=== PATIENT | male | born 1965 | race African-American/Black ===

== ENCOUNTER 2018-08-08 10:31 | Day surgery (SDC) | payer OTHER ==
[2018-08-01 09:53] LABS: APPEARANCE,URINE CLEAR; BILIRUBIN,URINE NEGATIVE (NEGATIVE); COLOR,URINE YELLOW; GLUCOSE, URINE NEGATIVE (NEGATIVE); KETONES,URINE NEGATIVE (NEGATIVE); LEUKOCYTE ESTERASE,URINE NEGATIVE (NEGATIVE); NITRITE,URINE NEGATIVE (NEGATIVE); PROTEIN,URINE NEGATIVE (NEGATIVE); URINE SPECIFIC GRAVITY 1.018; UROBILINOGEN,URINE NEGATIVE mg/dL (<2.0)
[2018-08-01 09:55] LABS: ABSOLUTE EOSINOPHILS # (AUTO) 0.1 10^3/uL (0.0-0.6); ABSOLUTE LYMPHOCYTES (AUTO) 1.7 10^3/uL (0.5-4.7); ABSOLUTE MONOCYTES (AUTO) 0.4 10^3/uL (0.1-1.4); ABSOLUTE NEUT (AUTO) 2.9 10^3/uL (1.7-8.2); BASOPHILS % (AUTO) 0.6 % (0-2); EOSINOPHILS % (AUTO) 2.3 % (0-6); HEMATOCRIT 39.3 % (37.9-51.0); HEMOGLOBIN 13.2 g/dL (13.5-17.0); LYMPHOCYTES % (AUTO) 32.8 % (13-45); MEAN CORPUSCULAR HEMOGLOBIN 32.2 pg (27.0-33.4); MEAN CORPUSCULAR HGB CONC 33.6 g/dL (32.0-36.0); MEAN CORPUSCULAR VOLUME 96 fl (80-97); MONOCYTES % (AUTO) 8.3 % (3-13); PLATELET COUNT 150 10^3/uL (150-450); RED BLOOD COUNT 4.09 10^6/uL (4.35-5.55); RED CELL DISTRIBUTION WIDTH 12.9 % (11.5-14.0); TOTAL CELLS COUNTED % (AUTO) 100 %; WHITE BLOOD COUNT 5.3 10^3/uL (4.0-10.5)
[2018-08-01 10:29] LABS: ANION GAP 9 (5-19); BLOOD UREA NITROGEN 15 mg/dL (7-20); CALCIUM 9.3 mg/dL (8.4-10.2); CARBON DIOXIDE 33 mmol/L (22-30); CHLORIDE 101 mmol/L (98-107); GLUCOSE 83 mg/dL (75-110); POTASSIUM 4.1 mmol/L (3.6-5.0); SODIUM 142.6 mmol/L (137-145)
--- NOTE | 2018-08-01 22:33 | EKG REPORT ---
SEVERITY:- NORMAL ECG - SINUS RHYTHM : Confirmed by: Ladi Ravi MD 01-Aug-2018 22:33:10
[~2018-08-08 10:31] MED LIST: BUPIVACAINE HCL 0.5 % INJ/PF 30 ML SDV ONE; CEFAZOLIN 2 GM/D5W RTU 2 GM/50 ML RTUPB IV ONE; CEFAZOLIN 2 GM/D5W RTU 2 GM/50 ML RTUPB IV PRN; DEXAMETHASONE SOD PHOSPHATE INJ 4 MG/1 ML VIAL ONE; EPINEPHRINE INJ/PF 1 MG/1 ML AMPULE ONE; FENTANYL CITRATE INJ/PF 100 MCG/2 ML AMPUL ONE; HYDROMORPHONE HCL INJ/PF 2 MG/ML AMPULE ONE; LACTATED RINGERS 1000 ML IV PRN; LIDOCAINE 0.5% INJ-PF (5 MG/ML) 50 ML SDV SUBCUT PRN; MIDAZOLAM 2 MG/2 ML INJ ONE; ONDANSETRON HCL INJ/PF 4 MG/2 ML SDV ONE; PROPOFOL INJ 200 MG/20 ML VIAL IV ONE
[2018-08-08] MEDS ORDERED: ACETAMINOPHEN 325 MG TABLET ONE (10:34)
[2018-08-08] MEDS ORDERED: FAMOTIDINE INJ/PF 20 MG/2 ML SDV IV ONE (10:34)
[2018-08-08] MEDS ORDERED: RINGERS SOLUTION,LACTATED 1,000 ML IV ONE (10:45)
[2018-08-08] MEDS ORDERED: EPHEDRINE SULFATE INJ 50 MG/1 ML AMPULE ONE (13:36)
[2018-08-08] MEDS ORDERED: DIPHENHYDRAMINE HCL 50 MG/ML VIAL IV PRN (14:39)
[2018-08-08] MEDS ORDERED: FENTANYL CITRATE INJ/PF 100 MCG/2 ML AMPUL IV PRN ×3 (14:39)
[2018-08-08] MEDS ORDERED: MORPHINE SULFATE 10 MG/ML INJ IV PRN (14:39)
[2018-08-08] MEDS ORDERED: PROMETHAZINE HCL INJ 25 MG/1 ML VIAL IV PRN ×2 (14:39)
[2018-08-08] MEDS ORDERED: ONDANSETRON HCL INJ/PF 4 MG/2 ML SDV IV PRN ×2 (14:39→16:01)
[2018-08-08] MEDS ORDERED: MEPERIDINE HCL/PF INJ 25 MG/1 ML DISP.SYRIN IV PRN (14:39)
[2018-08-08] MEDS ORDERED: LIDOCAINE 2% INJ (20 MG/ML) 20 ML MDV ONE (15:49)
[2018-08-08] MEDS ORDERED: LIDOCAINE 2%/EPINEPHRINE INJ 20 ML VIAL ONE (15:49)
[2018-08-08] MEDS ORDERED: ROPIVACAINE HCL 0.5% INJ/PF (5 MG/1 ML) 30 ML SDV ONE (15:49)
[2018-08-08] MEDS ORDERED: OXYCODONE-ACETAMINOPHEN 5-325 MG TABLET PO PRN (16:01)
[2018-08-08] MEDS ORDERED: HYDROMORPHONE HCL INJ/PF 2 MG/ML AMPULE IV PRN (16:01)
--- NOTE | 2018-08-08 16:01 | Operative Report ---
Operative Report DATE OF SURGERY: 08/08/18 PREOPERATIVE DIAGNOSIS: Right shoulder rotator cuff tear POSTOPERATIVE DIAGNOSIS: Right shoulder rotator cuff tear with degenerative SLAP tear impingement syndrome OPERATION: Right shoulder arthroscopy with acromioplasty, rotator cuff repair, open subpectoralis biceps tenodesis SURGEON: CHELSI FONSECA ANESTHESIA: GA COMPLICATIONS: None ESTIMATED BLOOD LOSS: Minimal PROCEDURE: Indication for above procedure: 53-year-old male with long-standing history of right shoulder discomfort. Attempted conservative measures including injections, anti-inflammatories and home exercise program without long-term resolution of patient's symptoms. Decision was then made to proceed with operative intervention which includes shoulder arthroscopy with rotator cuff repair. Postoperative outcomes, expectations, rehabilitation and prognosis have been explained patient verbalized understanding consented for surgical procedure. Procedure In Detail: Patient was seen and evaluated in the preoperative holding area. The RIGHT upper extremity was initialized and marked. Patient received 2g of Ancef IV for bacterial prophylaxis. Patient was taken back to the operative room where transferred to the operative table and placed under general anesthesia. Once they were adequately anesthetized a patient was placed in the beachchair position cervical spine placed in a neutral position, nonoperative left upper extremity bilateral lower extremity carefully padded and all bony prominences padded.. A surgical team debriefing was performed ensuring all instrumentation was available, the surgical procedure was discussed with possible concerns reviewed. The upper extremity was prepped with chlorhexidine and alcohol and draped in a sterile fashion. A timeout was done identifying correct patient, procedure and extremity everyone in attendance agree with this and verbalized no concerns. Posterior lateral portal was established arthroscope was introduced into the glenohumeral joint via triangulation anterior portal established. Diagnostic arthroscopy demonstrated high-grade partial-thickness rotator cuff tear with disruption of the anterior and posterior cables with greater than 70% involvement. There is degeneration of the superior labrum with peelback upon flexion, abduction and external rotation. Subscapularis remained intact. Minimal degenerative changes throughout the glenohumeral joint. Undersurface of the rotator cuff was debrided at the footprint. Biceps tendon was then released and labrum debrided. Arthroscope introduced into the subacromial space lateral portal established. Subacromial bursectomy was performed. Coracoacromial ligament was released but not excised. Anterior acromial spur was identified and acromioplasty performed. Diagnostic arthroscopy of the subacromial space demonstrated high-grade partial-thickness tear with thinning along the lateral attachment given the high-grade nature of the tear it was completed with a trocar. Any degenerative rotator cuff was further debrided. The greater tuberosity was debrided to cancellus bone with a bur. Passport cannula was placed in the lateral portal via triangulation additional portal was made in the anterior medial row swivel lock anchor placed. Additional portal established and posterior medial row anchor placed. Via speed bridge technique the link sutures were placed anteriorly and posteriorly respectively. Each suture was then cut providing 4 limbs of suture. Anterior and posterior suture was shuttled out the lateral portal and placed into a swivel lock anchor in the posterior lateral row anchor was secured. The remaining 2 stitches were then placed through an additional swivel lock anchor in the anterior lateral portal established. There was adequate compression at the footprint no evidence of tissue thinning or residual defect within the rotator cuff. The rotator cuff was mobile as a unit throughout range of motion. At completion of the case portals were closed with subcuticular 4-0 Monocryl reinforced with Dermabond and Steri-Strips. Longitudinal skin incision was made along the inferior third of the pectoralis major. Blunt dissection was performed identifying the inferior border of the pectoralis major. Any peripheral vasculature was carefully coagulated. I then identified the tenotomized long head of the biceps which was retrieved and brought out the wound. The tendon was then secured 2 centimeters distal to the musculotendinous junction with a #2 fiber loop and the remaining diseased portion of the biceps was excised. The Arthrex biceps tenodesis button was then secured to my biceps tendon. Under direct visualization I then cleared an area along the anterior aspect of the humerus and drilled unicortically. The button was then placed into the unicortical hole and the biceps tendon was shuttled to the anterior cortex of the humerus. I then checked stability of the button confirming maximal fixation. Utilizing the free needle one limb of the remaining FiberWire was secured to the biceps providing further fixation. The elbow was then placed through range of motion to ensure appropriate tension of the biceps with flexion and extension. The wound was then copiously irrigated with normal saline. Any peripheral vasculature was carefully coagulated with Bovie cautery. Skin was closed a running subcuticular 3-0 Monocryl suture reinforced with Dermabond and Steri-Strips. Sponge counts, instrument counts, needle counts were correct. Patient was then awoken from anesthesia. Transferred from the operating room table to the operating room stretcher. There was no intraoperative complications patient tolerated procedure well stable to PACU. Postoperative plan: Patient follow-up the office in 2 weeks for wound check and review arthroscopic pictures.
--- NOTE | 2018-08-08 16:04 | Discharge Summary ---
Discharge Summary (SDC) - Discharge Final Diagnosis: Right shoulder rotator cuff tear Date of Surgery: 08/08/18 Discharge Date: 08/08/18 Condition: Good Treatment or Instructions: Schedule Follow Up w/ Dr. Carl Mcguire @ [facility] to be seen in 10-14 days or as scheduled [place]: [place]: [place]: May remove dressing on postop day #3, keep incision covered and dry. Cryocuff to shoulder May begin pendulum exercises along w/ hand, wrist and elbow range of motion 4x per day or as tolerated. May remove sling for hygiene purposes otherwise continue it at all times. Stool softener of choice when on pain medication. Prescriptions: Oxycodone HCl/Acetaminophen [Percocet 5-325 mg Tablet] 1 tab PO Q6 PRN #25 tab PRN Reason: Referrals: VILLA RENTERIA PA [Primary Care Provider] - Discharge Diet: As Tolerated Respiratory Treatments at Home: Deep Breathing/Coughing Discharge Activity: No Lifting Over 10 Pounds, No Lifting/Push/Pulling Report the Following to Your Physician Immediately: Fever over 101 Degrees, Unusual Bleeding, Redness, Swelling, Warmth, Increased Soreness
[2018-08-08] MEDS ORDERED: OXYCODONE-ACETAMINOPHEN 5-325 MG TABLET ONE (17:09)
[2018-08-08 19:01] VITALS: BP 117/72
[2018-08-08] MEDS ORDERED: SUCCINYLCHOLINE CHLORIDE INJ 200 MG/10 ML VIAL ONE (19:17)
== END 2018-08-08 18:25 | disposition home or self-care (01) ==
LOC: OROUT 10:31
PROVIDERS: ATTEND Orthopaedic Surgery
DX: S43.431A Superior glenoid labrum lesion of right shoulder, initial encounter (principal); X58.XXXA Exposure to other specified factors, initial encounter; M75.121 Complete rotator cuff tear or rupture of right shoulder, not specified as traumatic; K21.9 Gastro-esophageal reflux disease without esophagitis; Z79.899 Other long term (current) drug therapy; Z88.2 Allergy status to sulfonamides
CPT/HCPCS: 93005; 36415; 85025; 80048; 81001; 93010; 29827; 29828; 29826; 24340; C1713 ×3; J2795; J2250; J3490 ×4; J1100; J0171; J3010; J1170; J0330; J2405; J2704; S0028; J0690; 1630

== ENCOUNTER → 2019-03-20 | Outpatient (CLI) | payer OTHER ==
--- NOTE | 2019-03-20 11:06 | RADIOLOGY REPORT (SQ) ---
EXAM DESCRIPTION: MRI RT UPPER JOINT WITHOUT COMPLETED DATE/TIME: 03/20/2019 8:32 am REASON FOR STUDY: R WRIST PAIN M25.531 PAIN IN RIGHT WRIST M25.512 PAIN IN LEFT SHOULDER COMPARISON: None. TECHNIQUE: Non arthrogram MRI right wrist images acquired and stored on PACS. Multiplanar images in clude fat sensitive sequences as T1, fluid sensitive sequences as FST2/STIR, cartilage sensitive sequ ences as FSPD, gradient echo sequences. LIMITATIONS: None. FINDINGS: BONE MARROW: No marrow signal abnormalities worrisome for occult fracture. CARPAL ALIGNMENT AND ARTICULATION: Normal congruity of sigmoid notch at level of distal RUJ without p ositive or negative ulnar variance. Normal capitolunate angle. No widening of scapholunate articulati on. However, there is evidence of osteoarthritis at the scapholunate joint with subcortical cysts an d surrounding bony sclerosis best shown on axial image 16/25 and coronal images 24-35. EFFUSION: None noted. No loose bodies. SCAPHOLUNATE LIGAMENT: No widening. Ligament is indistinct. There is subcortical cyst formation at the scapholunate articulation with surrounding dense bony sclerosis, best shown on axial image 16/25 and coronal images 24-35. LUNATE-TRIQUETRAL LIGAMENT: Intact without tear. TFC COMPLEX: Radial and ulnar attachments normal. Meniscus intact. Extensor carpi ulnaris tendon norm al without tendinopathy. EXTRINSIC LIGAMENTS AND DISTAL RADIO-ULNAR JOINT: Dorsal and volar distal RUJ intact without subluxat ion of the distal ulna. 1-6 EXTENSOR COMPARTMENTS: Normal. Specifically no tendinopathy of the abductor pollicis longus or ex tensor pollicis brevis to suggest de Quervain's Syndrome. CARPAL TUNNEL AND MEDIAN NERVE: Normal volume and morphology of the carpal tunnel proximally at the l evel of the radiocarpal joint and distally at the hook of the hamate. No thickening or signal alterat ion of the median nerve. OTHER: Subcortical cysts are present in the proximal hamate bone on coronal image 8/16, and along the capitate bone at its articulation with the trapezoid on coronal image 31. IMPRESSION: Osteoarthritis along intercarpal joints as above. No widening of intercarpal joint spac es or large wrist joint effusion or ganglion cyst TECHNICAL DOCUMENTATION: JOB ID: [id number] [employer]- All Rights Reserved Reading location - IP/workstation name: [email or web address]
--- NOTE | 2019-03-20 11:10 | RADIOLOGY REPORT (SQ) ---
EXAM DESCRIPTION: MRI LT UPPER JOINT WITHOUT COMPLETED DATE/TIME: 03/20/2019 8:32 am REASON FOR STUDY: L SHOULDER PAIN M25.531 PAIN IN RIGHT WRIST M25.512 PAIN IN LEFT SHOULDER COMPARISON: None. TECHNIQUE: Non arthrogram left shoulder images acquired and stored on PACS. Multiplanar imaging to i nclude fat sensitive sequences such as T1, water sensitive sequences such as FST2/STIR, cartilage sen sitive sequences such as FSPD/gradient-echo sequences. LIMITATIONS: None. FINDINGS: BONE MARROW AND CORTEX: No worrisome bone lesions or marrow replacement. No occult fractur es. JOINT OR BURSAL EFFUSION: There is a small amount of fluid in the subacromial/subdeltoid bursa commun icating with the glenohumeral joint through a defect in the anterior supraspinatus tendon GLENO-HUMERAL ARTICULATION: Normal articulation. No subluxation. No cystic change. No osteophytes or cartilage loss. ACROMION AND AC JOINT: Type 1 with mild acromioclavicular joint bony spurring. There is bony spurri ng along the undersurface of the acromion mildly narrowing the subacromial space. Trace fluid in the subacromial/subdeltoid bursa ROTATOR CUFF AND INTERVAL: Tear through the anterior half of the distal supraspinatus tendon at its i nsertion on the greater tuberosity, best shown on sagittal images 4-6 and coronal images 8-12. Diffu se tendinopathy throughout the infraspinatus tendon without full-thickness tear. subscapularis is in tact No rotator interval tear. No rotator interval thickening to suggest adhesive capsulitis. LABRUM AND BICEPS LABRAL COMPLEX: Intact. No labral tear. Intra-articular long-head biceps tendon n ormal. Distal biceps in normal location in bicipital groove. REMAINDER OF LABRUM AND IGHL : No gross tear or paralabral cyst formation. Labral evaluation is less than optimal without joint distention. No thickening of IGHL to suggest adhesive capsulitis. PERIARTICULAR AND ADJACENT SOFT TISSUES: No masses or abnormal nodes. OTHER: No other significant finding. IMPRESSION: Full-thickness tear anterior half supraspinatus tendon TECHNICAL DOCUMENTATION: JOB ID: [id number] [email or web address]- All Rights Reserved Reading location - IP/workstation name: [email or web address]
== END ==
LOC: RAD 07:03
PROVIDERS: ATTEND Physician Assistant Medical
DX: M19.031 Primary osteoarthritis, right wrist (principal); M25.531 Pain in right wrist; M75.122 Complete rotator cuff tear or rupture of left shoulder, not specified as traumatic; M25.512 Pain in left shoulder